=== PATIENT | female | born 1970 | race Caucasian/White ===

== ENCOUNTER 2023-10-01 06:15 | Day surgery (SDC) | payer OTHER ==
[~2023-10-01] VITALS: Ht 165.1 cm; Wt 100.0 kg
[~2023-10-01 06:15] MED LIST: DULO-113 PO; SODIUM CHLORIDE 0.9% 0 ML ONE
[2023-10-01] MEDS ORDERED: SODIUM CHLORIDE 0.9% 1,000 ML ONE (07:30)
[2023-10-01] MEDS: SODIUM CHLORIDE 0.9% 1,000 ML IV ONE (07:32)
[2023-10-01] MEDS ORDERED: AMLO-258 PO (07:54)
[2023-10-01] MEDS ORDERED: TIOT185 IH (07:54)
[2023-10-01] MEDS ORDERED: FAMO20 PO (07:54)
[2023-10-01] MEDS ORDERED: LISI-892 PO (07:54)
[2023-10-01] MEDS ORDERED: PRAZ5 PO (07:54)
[2023-10-01] MEDS ORDERED: FLUT15.812 NASAL (07:54)
[2023-10-01] MEDS ORDERED: QUET200T PO (07:54)
[2023-10-01] MEDS ORDERED: IPRA4AER IH (07:54)
[2023-10-01] MEDS ORDERED: PRED-572 PO (07:54)
[2023-10-01] MEDS ORDERED: ALBU18HF12 IH (07:54)
[2023-10-01] MEDS ORDERED: LURA40TA2 PO (07:54)
[2023-10-01] MEDS ORDERED: MONT-35 PO (07:54)
[2023-10-01] MEDS ORDERED: FLUT1BLS18 IH (07:54)
[2023-10-01] MEDS ORDERED: FentaNYL CITRATE PF 100 MCG/2 ML VIAL ONE (08:31)
[2023-10-01] MEDS ORDERED: MIDAZOLAM HCL 2 MG/2 ML VIAL ONE (08:31)
[2023-10-01 09:23] VITALS: PULSE 76; RESP 24; O2SAT 99
[2023-10-01] MEDS ORDERED: MethylPREDNISolone SOD SUCC 125 MG/2 ML VIAL ONE (09:57)
[2023-10-01] MEDS: MethylPREDNISolone SOD SUCC 125 MG/2 ML VIAL IVP ONE (10:06)
[2023-10-01] MEDS ORDERED: LIDOCAINE 4% 50 ML SOLUTION ONE (12:00)
[2023-10-01] MEDS ORDERED: ALBUTEROL SULFATE 2.5 MG/0.5 ML NEB SOLUTION NEB ONE (12:00)
[2023-10-01] MEDS ORDERED: BENZOCAINE 20% 50 MCG/SPRAY 57 GM ONE (12:00)
[2023-10-01] MEDS ORDERED: LIDOCAINE 2% 11 ML JELLY ONE (12:00)
== END 2023-10-01 11:05 | disposition home or self-care (01) ==
LOC: SURGERY 06:15
PROVIDERS: ATTEND Internal Medicine Critical Care Medicine
DX: R05.3 Chronic cough (principal); J38.4 Edema of larynx; B37.0 Candidal stomatitis; R06.2 Wheezing; R49.0 Dysphonia; R91.8 Other nonspecific abnormal finding of lung field; J44.9 Chronic obstructive pulmonary disease, unspecified; I10 Essential (primary) hypertension; F17.210 Nicotine dependence, cigarettes, uncomplicated; Z86.73 Personal history of transient ischemic attack (TIA), and cerebral infarction without residual deficits; Z79.899 Other long term (current) drug therapy
CPT/HCPCS: 31623; 87206; 87101; 87220; 87070; 88108; 31624; 94640; 71045; 87015; J3010; J2250; J2919; J7030; J7613; Z7610